=== PATIENT | female | born 1940 | race Caucasian/White ===

== ENCOUNTER 2020-01-04 11:01 | Outpatient (CLI) | payer BC, MEDICARE ==
--- NOTE | 2020-01-04 11:55 | MRI ---
MRI of thelumbar spine without contrast: 01/04/2020 COMPARISON:None available HISTORY:Spondylitis, left leg weakness, radiculopathy TECHNIQUE: Multiplanar multisequence MR imaging of thelumbar spine without contrast Findings:The sagittal STIR imaging demonstrates no focal area of suspicious osseous marrow edema. The re are edematous degenerative endplate changes at L3-4 laterally on the right. On the basis of 5 lumbar type vertebral bodies, the conus medullaris terminates at the L1 level. There is 6 mm of anterolisthesis at L4-5. T12-L1: There is mild bilateral facet hypertrophy. Intervertebral disc height and signal intensity wi thin normal limits with no significant central canal or neural foraminal stenosis. L1-2: Mild bilateral facet hypertrophy. Mild disc desiccation with no significant central canal or ne ural foraminal stenosis. L2-3: There is mild bilateral facet hypertrophy with hypertrophy of the ligamentum flavum. There is d isc space narrowing with disc desiccation and mild anterior osteophyte. There is disc bulge partially effacing the ventral thecal sac and leading to a mild degree of central canal stenosis and a mild/moderate degree of a right lateral recess stenosis. No significant neural foraminal stenosis. A superimposed right paracentral/right foraminal disc protrusion is present. L3-4: There is disc space narrowing with disc desiccation and disc bulge. There is bilateral facet hy pertrophy and hypertrophy of ligamentum flavum with moderate central canal stenosis and mild bilateral neural foraminal stenosis, right greater than left. L4-5: There is disc space narrowing with disc desiccation and vacuum disc formation. There is promine nt bilateral facet hypertrophy. There is severe central canal stenosis secondary to anterolisthesis and facet disease. There is a foraminal and post foraminal disc extrusion on the left, measuring appr oximately 1.4 cm in transverse dimension, best seen on axial image 39. This causes severe left neural foraminal stenosis with mass effect on the exiting left L4 nerve root. There is mild neural fo raminal stenosis on the right. L5-S1: There is disc space narrowing with degenerative endplate change and bilateral facet hypertroph y. There is a small disc osteophyte complex with mild central canal stenosis. There is mild/moderate lef t neural foraminal stenosis. No significant right neural foraminal stenosis. The visualized retroperitoneal structures demonstrate no acute findings. There is an incompletely abhishek ged T2 hyperintense lesion emanating from the superior aspect of the right kidney measuring 3.2 cm, the imaged portions consistent with a cyst. IMPRESSION:Multilevel degenerative change within the lumbar spine as detailed above. The most signifi cant finding is a foraminal and post foraminal/lateral disc extrusion on the left at L4-5 causing severe neural foraminal stenosis and mass effect on the exiting left L4 nerve root.
== END 2020-01-04 11:02 | disposition home or self-care (01) ==
LOC: SCSMRI 11:01
PROVIDERS: ATTEND Orthopaedic Surgery
DX: M46.96 Unspecified inflammatory spondylopathy, lumbar region (principal); M47.816 Spondylosis without myelopathy or radiculopathy, lumbar region; M48.061 Spinal stenosis, lumbar region without neurogenic claudication; M51.26 Other intervertebral disc displacement, lumbar region
CPT/HCPCS: 72148

== ENCOUNTER 2024-11-15 08:00 | Outpatient (CLI) | payer MEDICARE | END 2024-11-15 08:01 | disposition home or self-care (01) | LOC: PET 08:00 | PROVIDERS: ATTEND Internal Medicine | DX: C50.412 Malignant neoplasm of upper-outer quadrant of left female breast (principal) | CPT/HCPCS: 78815; A9552 ==

== ENCOUNTER 2025-01-05 09:50 | Day surgery (SDC) | payer MEDICARE ==
[2025-01-05] MEDS ORDERED: diphenhydrAMINE 25 MG CAP PO SCH (10:30)
[2025-01-05] MEDS ORDERED: FLU (Fluad Triv) 25-26 (65UP)PF 45 MCG/0.5 ML Syringe IM ONE (12:15)
[2025-01-05] MEDS ORDERED: Acetaminophen 500 MG TAB ONE (12:26)
[2025-01-05] MEDS: Acetaminophen 500 MG TAB PO SCH (12:30)
[2025-01-05 15:50] VITALS: BP 133/64; TEMP 98.3
== END 2025-01-05 16:17 | disposition home or self-care (01) ==
LOC: ONC/OP 09:50
PROVIDERS: ATTEND Internal Medicine
DX: D64.9 Anemia, unspecified (principal)
CPT/HCPCS: 36430; 86850; 86900; 86901; 86920; P9016; P9035

== ENCOUNTER 2025-01-15 11:58 | Observation (INO) | payer MEDICARE ==
[~2025-01-15 11:58] MED LIST: Iopamidol-370 76% 500 ML MDV (1 ML CHARGE) ONE
[2025-01-15 12:36] LABS: Mean Corpuscular Volume 81.1 fL (78.0-98.0)
[2025-01-15 12:37] LABS: Hematocrit 23.1 % (36.0-47.0); Hemoglobin 7.9 g/dL (12.0-16.0); Mean Corpuscular Hemoglobin 27.7 pg (27.0-31.0); Platelet Count 34 10x3/uL (130-400); Red Blood Cell (RBC) Count 2.85 mill/uL (4.20-5.40); White Blood Cell (WBC) Count 0.48 10x3/uL (4.8-10.8)
[2025-01-15 12:48] LABS: ALT (SGPT) 11 U/L (Less than 34); AST (SGOT) 21 U/L (11-34); Albumin 2.2 g/dL (3.1-4.5); Alkaline Phosphatase 81 U/L (40-110); Anion Gap 16 mmol/L (10-20); BUN (Urea Nitrogen) 26 mg/dL (9.8-20.1); Bilirubin, Total 1.3 mg/dL (0.3-1.2); Calc. Creatinine Clearance 0 mL/min (70-130); Calcium 7.9 mg/dL (7.8-10.44); Carbon Dioxide 23 mmol/L (23-31); Chloride 103 mmol/L (98-107); Globulin 3.3 g/dL (2.4-3.5); Glucose 162 mg/dL (83-110); Potassium 3.2 mmol/L (3.5-5.1); Sodium 139 mmol/L (136-145)
[2025-01-15 13:13] LABS: Magnesium 2.0 mg/dL (1.6-2.6)
[2025-01-15 13:33] LABS: Anisocytosis SLIGHT = 6-15 cells HPF (0-5); Macrocytosis SLIGHT = 6-15 cells HPF (0-5); Ovalocytes SLIGHT = 2-5 cells HPF (0-1); Platelet Adequacy Comment Significant Decrease; Polychromasia SLIGHT = 2-3 cells HPF (0-2); Schistocytes SLIGHT = 2-5 cells HPF (0-1); Smudge Cells 21.4 %
[2025-01-15] MEDS ORDERED: Potassium Bicarbonate/Cit Ac 20 MEQ TAB ONE (15:08)
[2025-01-15] MEDS ORDERED: Furosemide 20 MG (2 mL) VIAL ONE (20:01)
[2025-01-15] MEDS ORDERED: Guaifenesin DM 100-10/5 ML UDCUP PO PRN (20:39)
[2025-01-15] MEDS ORDERED: Calcium Carbonate 500 MG ChewTAB PO PRN (20:39)
[2025-01-15] MEDS ORDERED: Acetaminophen 325 MG TAB PO PRN (20:39)
[2025-01-15 22:25] VITALS: BMI 28.9
[2025-01-15] MEDS: FLU (Fluad Triv) 25-26 (65UP)PF 45 MCG/0.5 ML Syringe IM ONE (23:22)
[2025-01-16 05:51] LABS: Hematocrit 23.3 % (36.0-47.0); Hemoglobin 8.1 g/dL (12.0-16.0); Mean Corpuscular Hemoglobin 28.7 pg (27.0-31.0); Mean Corpuscular Volume 82.6 fL (78.0-98.0); Platelet Count 24 10x3/uL (130-400); Red Blood Cell (RBC) Count 2.82 mill/uL (4.20-5.40); White Blood Cell (WBC) Count 0.22 10x3/uL (4.8-10.8)
[2025-01-16 06:14] LABS: Anion Gap 15 mmol/L (10-20); BUN (Urea Nitrogen) 21 mg/dL (9.8-20.1); Calc. Creatinine Clearance 66 mL/min (70-130); Calcium 7.6 mg/dL (7.8-10.44); Carbon Dioxide 26 mmol/L (23-31); Chloride 106 mmol/L (98-107); Glucose 99 mg/dL (83-110); Potassium 2.5 mmol/L (3.5-5.1); Sodium 144 mmol/L (136-145)
[2025-01-16 06:26] LABS: Burr Cells SLIGHT = 2-5 cells HPF (0-1); Macrocytosis SLIGHT = 6-15 cells HPF (0-5); Platelet Adequacy Comment Platelets Decreased; Polychromasia SLIGHT = 2-3 cells HPF (0-2); Smudge Cells 21.4 %
[2025-01-16] MEDS: Potassium Chloride 20 MEQ in Premix 1 BAG IVPB SCH (06:44)
[2025-01-16] MEDS: Magnesium 2 GM/50 ML(in water) 2 GM in Premix 1 BAG IVPB SCH (09:00)
[2025-01-16 16:13] LABS: Potassium 3.1 mmol/L (3.5-5.1)
[2025-01-16] MEDS: Albumin 25% 25 GM (100 mL) BOT IVPB SCH (16:26)
[2025-01-16 21:20] VITALS: BP 141/81; TEMP 99.8
== END 2025-01-16 21:12 | disposition short-term general hospital (02) ==
LOC: ERS 11:58 → T4-B 20:39
PROVIDERS: ADMIT Internal Medicine; ATTEND Internal Medicine
DX: R53.1 Weakness (principal); J90 Pleural effusion, not elsewhere classified; D46.9 Myelodysplastic syndrome, unspecified; I12.9 Hypertensive chronic kidney disease with stage 1 through stage 4 chronic kidney disease, or unspecified chronic kidney disease; E11.22 Type 2 diabetes mellitus with diabetic chronic kidney disease; N18.2 Chronic kidney disease, stage 2 (mild); E78.5 Hyperlipidemia, unspecified; E44.0 Moderate protein-calorie malnutrition; E87.6 Hypokalemia; Z79.84 Long term (current) use of oral hypoglycemic drugs; Z79.899 Other long term (current) drug therapy
CPT/HCPCS: 36430; 71045; 71275; 80048; 82962 ×2; 83605; 83735; 83880; 84100; 84132; 85025; 86850; 86900; 86901; 86920; 87040; 93005; 96374; 96375; 96376; 97139; 99285; G0378 ×2; J1940; J3475; J3480; P9016; P9047; Q9967; 36415; 36416; 80053; 84443